=== PATIENT | male | born 1995 | race African-American/Black ===

== ENCOUNTER 2020-01-15 00:17 | Emergency (ER) | payer SELFPAY ==
[2020-01-15 00:39] LABS: #Basophils 0.1 thou/uL (0.0-0.2); #Eosinphils 0.1 thou/uL (0.0-0.7); #Lymphocytes 1.6 thou/uL (1.20-3.40); #Monocytes 0.7 thou/uL (0.11-0.59); #Neutrophils 6.1 thou/uL (1.40-6.50); %Basophils 1.1 % (0.0-1.0); %Eosinophils 1.3 % (0.0-10.0); %Lymphocytes 18.9 % (21.0-51.0); %Monocytes 8.2 % (0.0-10.0); %Neutrophils 70.5 % (42.0-75.0); Hemoglobin 14.2 g/dL (14.0-18.0); Mean Corpuscular HGB CONC 32.6 g/dL (32.0-36.0); Mean Corpuscular Hemoglobin 28.4 pg (27.0-31.0); Mean Corpuscular Volume 87.3 fL (78.0-98.0); Mean Platelet Volume 8.3 fL (7.4-10.4); Platelet Count 236 thou/uL (130-400); RBC Distribution Width 14.3 % (11.5-14.5); Red Blood Cell (RBC) Count 5.01 mill/uL (4.70-6.10); White Blood Cell (WBC) Count 8.6 thou/uL (4.8-10.8)
[2020-01-15 01:01] LABS: ALT (SGPT) 27 U/L (8-55); AST (SGOT) 15 U/L (5-34); Albumin 3.9 g/dL (3.5-5.0); Alkaline Phosphatase 62 U/L (40-110); Anion Gap 14 mmol/L (10-20); BUN (Urea Nitrogen) 11 mg/dL (8.9-20.6); Bilirubin, Total 0.2 mg/dL (0.2-1.2); Calc. Creatinine Clearance 0 mL/min (70-130); Calcium 9.2 mg/dL (7.8-10.44); Carbon Dioxide 25 mmol/L (22-29); Chloride 104 mmol/L (98-107); Estimated GFR-MDRD Greater than 90; Globulin 2.5 g/dL (2.4-3.5); Glucose 102 mg/dL (70-105); Potassium 4.4 mmol/L (3.5-5.1); Protein, Total 6.4 g/dL (6.0-8.3); Sodium 139 mmol/L (136-145)
[2020-01-15] MEDS ORDERED: Ketorolac Tromethamine 30 MG/ML VIAL ONE (01:25)
--- NOTE | 2020-01-15 07:59 | RAD ---
CHEST 1 VIEW: Date: 01/15/2020 HISTORY: Chest pain. COMPARISON: 06/06/2015 exam. FINDINGS: Heart size and mediastinum are within normal limits. The lungs are clear of any infiltrates. No bony findings. IMPRESSION: No active intrathoracic disease. POS: [facility]
== END 2020-01-15 01:57 | disposition home or self-care (01) ==
LOC: ERS 00:17
DX: M94.0 Chondrocostal junction syndrome [Tietze] (principal)
CPT/HCPCS: 36415; 71045; 80053; 84484; 85025; 93005; 96372; J1885

== ENCOUNTER 2021-12-30 16:31 | Emergency (ER) | payer OTHER, SELFPAY ==
[2021-12-30] MEDS ORDERED: Ibuprofen 800 MG TAB ONE (18:02)
[2021-12-30] MEDS ORDERED: Acetaminophen 500 MG TAB ONE (18:02)
== END 2021-12-30 18:48 | disposition home or self-care (01) ==
LOC: ERS 16:31
DX: S29.012A Strain of muscle and tendon of back wall of thorax, initial encounter (principal); M25.562 Pain in left knee; V49.50XA Passenger injured in collision with unspecified motor vehicles in traffic accident, initial encounter